=== PATIENT | male | born 1970 | race Two or more races ===

== ENCOUNTER 2016-08-03 07:51 | Emergency (ER) | payer MEDICARE ==
[~2016-08-03] VITALS: Ht 165.1 cm; Wt 72.6 kg
[2016-08-03] MEDS ORDERED: Ketorolac 60mg Inj IM ONE (08:30)
--- NOTE | 2016-08-03 08:33 | Emergency Room Report ---
History of Present Illness General Chief Complaint: Back Pain-No Injury Source: Patient Present Illness HPI This patient has 2 separate complaints. The patient states has a history of back pain. He has had multiple back injuries. He states that he feels like he aggravated his back. He states that the symptoms were onset 2 days ago. He denies trauma. He denies weakness. He denies loss of bowel or bladder control. He denies fever or chills. He states that he is living in a custodial for the past 2 days and has also developed an itchy rash on both of his arms. He denies fever or chills. He has no other rash on any other parts of his body. He has no other complaints. Allergies: Coded Allergies: No Known Allergies (Unverified , 08/03/16) Patient History Past Medical History: see triage record, other - Back injury. Past Surgical History: other - Back surgery x2 Social History: Denies: alcohol use, drug use, smoking Reviewed Nursing Documentation: PMH: Agreed, PSxH: Agreed Nursing Documentation-PMH Past Medical History: No History, Except For Review of Systems All Other Systems: negative except mentioned in HPI Physical Exam Vital Signs Date Time Temp Pulse Resp B/P Pulse Ox O2 Delivery O2 Flow Rate FiO2 08/03/16 07:56 98.1 64 16 181/77 98 Room Air Sp02 EP Interpretation: reviewed, normal General Appearance: no apparent distress, alert, GCS 15, non-toxic Head: normocephalic, atraumatic Eyes: bilateral eye PERRL, bilateral eye normal inspection ENT: hearing grossly normal, normal pharynx, no angioedema, normal voice Neck: full range of motion Respiratory: no respiratory distress, no retraction, no accessory muscle use, speaking full sentences Cardiovascular #1: no edema Gastrointestinal: normal inspection Rectal: deferred Musculoskeletal: gait/station normal, normal range of motion, non-tender Neurologic: alert, oriented x3, responsive, motor strength/tone normal, sensory intact, speech normal Psychiatric: judgement/insight normal, memory normal, mood/affect normal, no suicidal/homicidal ideation Skin: normal color, warm/dry, well hydrated, other - scattered nodules BL UE c/ w folliculitis Medical Decision Making Diagnostic Impression: Primary Impression: Chronic back pain Additional Impression: Folliculitis ER Course This patient has a clinical presentation consistent with mechanical back pain. There are no red flags on physical exam. The patient denies any concerning features such as trauma, fevers, night sweats, history of malignancy, pain worse at night, IV drug abuse, urinary/fecal incontinence or retention, focal weakness or change in sensation, or refractory pain. Given these pertinent negatives in the history and physical exam an emergent cause of the back pain such as epidural abscess, metastasis to bone, cauda equina syndrome, and fracture is less likely. I also doubt emergent cardiovascular cause of back pain such as aortic dissection a ruptured abdominal aortic aneurysm given patient with equal pulses in all 4 extremities with no diastolic murmur or pulsatile abdominal mass. The patient was counseled that, though unlikely, the possibility of an emergent cause of back pain may still be present and that the patient should return immediately if symptoms persist or worsen. The symptoms are reproducible with movement. Patient had a benign evaluation and neurologic examination. No emergency etiology was identified. Also this patient has a mild rash consistent with a mild folliculitis. Patient states that previously he needed antibiotics for this. Although, it does not appear bacterial in etiology, I will ahead and give doxycycline for acne-like appearance to the lesions. I will also give topical hydrocortisone cream for the itching. Patient was given return precautions and followup instructions. Last Vital Signs Date Time Temp Pulse Resp B/P Pulse Ox O2 Delivery O2 Flow Rate FiO2 08/03/16 07:56 98.1 64 16 181/77 98 Room Air Disposition: HOME, SELF-CARE Condition: Improved Referrals: NOT CHOSEN IPA/,REFERRING (PCP) Patient Instructions: Back Pain, Adult JOSE PHILLIP D.O. Aug 03, 2016 08:33
[2016-08-03] MEDS ORDERED: IBUPROFEN600 MG ORAL (08:38)
[2016-08-03] MEDS ORDERED: ANTI-ITCH28 G1 TP (08:39)
[2016-08-03] MEDS ORDERED: DOXYCYCLINE MO100 MG ORAL (08:39)
[2016-08-03] MEDS ORDERED: CYCLOBENZAPRINE10 MG ORAL (08:39)
[2016-08-03 09:12] VITALS: BP_SYST 136; BP_SYST 181; BP_DIAS 77; BP_DIAS 93
== END 2016-08-03 09:17 | disposition home or self-care (01) ==
LOC: EMR 08:07
DX: M54.9 Dorsalgia, unspecified (principal); G89.29 Other chronic pain; L73.9 Follicular disorder, unspecified
CPT/HCPCS: 96372; 99283; 99284